=== PATIENT | female | born 1995 | race Caucasian/White ===

== ENCOUNTER 2024-02-16 13:31 | Inpatient (IN) | payer MEDICAID ==
[~2024-02-16] VITALS: Ht 175.3 cm; Wt 95.3 kg
[2024-02-16 14:31] VITALS: O2SAT 98
[2024-02-16] MEDS: ALBUTEROL SULFATE 2.5 MG/3 ML NEBU NEB ONE ×2 (14:31→17:10)
[2024-02-16] MEDS: IPRATROPIUM BROMIDE 0.5 MG/2.5 ML NEBU NEB ONE ×2 (14:31→17:10)
[2024-02-16] MEDS ORDERED: ALBUTEROL SULFATE 2.5 MG/3 ML NEBU ONE ×2 (14:33→17:03)
[2024-02-16] MEDS ORDERED: IPRATROPIUM BROMIDE 0.5 MG/2.5 ML NEBU ONE ×2 (14:33→17:03)
[2024-02-16] MEDS ORDERED: methylPREDNISolone SOD SUCC 125 MG/2 ML VIAL ONE (14:39)
[2024-02-16 14:42] LABS: BASOPHILS % (AUTO) 0.5 % (0.0-2.0); EOSINOPHILS # (AUTO) 0.1 K/uL (0.0-0.7); EOSINOPHILS % (AUTO) 2.2 % (0.0-7.0); HEMATOCRIT 42.6 % (31.2-41.9); HEMOGLOBIN 14.4 g/dL (10.9-14.3); LYMPHOCYTES # (AUTO) 1.6 K/uL (0.8-4.8); LYMPHOCYTES % (AUTO) 34.3 % (20.5-51.5); MEAN CORPUSCULAR HEMOGLOBIN 29.6 uug (24.7-32.8); MEAN CORPUSCULAR HGB CONC 34 g/dL (32.3-35.6); MEAN CORPUSCULAR VOLUME 87.7 fL (75.5-95.3); MONOCYTES # (AUTO) 0.6 K/uL (0.1-1.30); MONOCYTES % (AUTO) 13.2 % (0.0-11.0); NEUTROPHILS # (AUTO) 2.3 K/uL (1.8-8.9); NEUTROPHILS % (AUTO) 49.8 % (38.5-71.5); PLATELET COUNT (AUTO) 266 K/uL (179-408); RED BLOOD CELL COUNT(AUTO) 4.86 MIL/uL (3.63-4.92); RED CELL DISTRIBUTION WIDTH 14.1 % (12.3-17.7); WHITE BLOOD COUNT (AUTO) 4.7 K/uL (3.8-11.8)
[2024-02-16] MEDS: methylPREDNISolone SOD SUCC 125 MG/2 ML VIAL IV ONE (14:42)
[2024-02-16 14:44] LABS: DIFFERENTIAL COMMENT 1
[2024-02-16 14:48] LABS: CALCIUM 8.6 mg/dL (8.5-10.1); CARBON DIOXIDE 28 mmol/L (21-32); CHLORIDE 106 mmol/L (98-107); CREATININE 0.8 mg/dL (0.6-1.3); GLUCOSE 94 mg/dL (74-106); POTASSIUM 3.8 mmol/L (3.5-5.1); SODIUM SERUM 146 mmol/L (136-145); UREA NITROGEN, BLOOD 11 mg/dL (7-18)
[2024-02-16 15:01] LABS: ALANINE AMINOTRANSFERASE 86 U/L (14-59); ALBUMIN 3.7 g/dL (3.4-5.0); ALKALINE PHOSPHATASE 84 U/L (50-136); ASPARTATE AMINOTRANSFERASE 34 U/L (15-37); BILIRUBIN,DIRECT 0.1 mg/dL (0.0-0.2); BILIRUBIN,TOTAL 0.3 mg/dL (0.2-1.0); TOTAL PROTEIN, SERUM 8.1 g/dL (6.4-8.2)
[2024-02-16 15:02] LABS: NT-PRO BNP < 5 pg/mL (0-125)
[2024-02-16 15:45] VITALS: O2SAT 100
[2024-02-16 17:10] VITALS: O2SAT 98
[2024-02-16 18:15] VITALS: O2SAT 100
[2024-02-16] MEDS ORDERED: ALBUTEROL SULFATE 1.25 MG/3 ML NEBU NEB PRN ×2 (19:30→19:57)
[2024-02-16] MEDS ORDERED: ONDANSETRON 4 MG/2 ML VIAL IV PRN (19:30)
[2024-02-16] MEDS ORDERED: ACETAMINOPHEN 325 MG TABLET PO PRN (19:30)
[2024-02-16] MEDS ORDERED: REMEDY ESSENTIAL ZINC PASTE 113 GM TP PRN (19:30)
[2024-02-16] MEDS ORDERED: MAGNESIUM HYDROXIDE 30 ML LIQUID UDC PO PRN (19:30)
[2024-02-16] MEDS ORDERED: IPRATROPIUM BROMIDE 0.5 MG/2.5 ML NEBU NEB PRN (19:30)
[2024-02-16 22:00] VITALS: BP 128/72; TEMP 98.2; O2SAT 98
[2024-02-16] MEDS ORDERED: methylPREDNISolone SOD SUCC 40 MG/ML VIAL IV SCH (22:00)
[2024-02-16] MEDS ORDERED: LEVALBUTEROL HCL NEB 0.63 MG/3 ML NEBU NEB PRN (22:15)
[2024-02-16] MEDS ORDERED: GUAIFENESIN/DEXTROMETHORPHAN 5 ML UDC PO PRN (22:15)
[2024-02-16] MEDS: BENZONATATE 100 MG CAPSULE PO PRN (22:43)
[2024-02-17 00:30] VITALS: BP 115/70; TEMP 97.9; O2SAT 98
[2024-02-17 04:43] VITALS: BP 112/67; TEMP 98.2; O2SAT 98
[2024-02-17] MEDS ORDERED: BENZONATATE 100 MG CAPSULE PO PRN (04:57)
[2024-02-17] MEDS ORDERED: IPRATROPIUM BROMIDE 0.5 MG/2.5 ML NEBU NEB PRN (04:57)
[2024-02-17] MEDS ORDERED: LEVALBUTEROL HCL NEB 0.63 MG/3 ML NEBU NEB PRN (04:58)
[2024-02-17] MEDS: methylPREDNISolone SOD SUCC 40 MG/ML VIAL IV SCH (05:14)
[2024-02-17 07:30] VITALS: BP 123/71; TEMP 98.1; O2SAT 98
[2024-02-17 07:59] LABS: BASOPHILS % (AUTO) 0.1 % (0.0-2.0); HEMATOCRIT 37.1 % (31.2-41.9); HEMOGLOBIN 12.8 g/dL (10.9-14.3); LYMPHOCYTES # (AUTO) 0.9 K/uL (0.8-4.8); LYMPHOCYTES % (AUTO) 14.1 % (20.5-51.5); MEAN CORPUSCULAR HEMOGLOBIN 29.9 uug (24.7-32.8); MEAN CORPUSCULAR HGB CONC 35 g/dL (32.3-35.6); MEAN CORPUSCULAR VOLUME 86.5 fL (75.5-95.3); MONOCYTES # (AUTO) 0.6 K/uL (0.1-1.30); MONOCYTES % (AUTO) 8.7 % (0.0-11.0); NEUTROPHILS # (AUTO) 5.1 K/uL (1.8-8.9); NEUTROPHILS % (AUTO) 77.1 % (38.5-71.5); PLATELET COUNT (AUTO) 288 K/uL (179-408); RED BLOOD CELL COUNT(AUTO) 4.28 MIL/uL (3.63-4.92); RED CELL DISTRIBUTION WIDTH 13.8 % (12.3-17.7); WHITE BLOOD COUNT (AUTO) 6.6 K/uL (3.8-11.8)
[2024-02-17 08:07] LABS: CALCIUM 8.5 mg/dL (8.5-10.1); CREATININE 0.7 mg/dL (0.6-1.3); PHOSPHOROUS 3.1 mg/dL (2.5-4.9)
[2024-02-17 08:09] LABS: DIFFERENTIAL COMMENT 1
[2024-02-17 08:48] LABS: THYROID STIMULATING HORMONE 0.638 mIU/mL (0.358-3.740)
[2024-02-17] MEDS: FLUTICASONE PROP NASAL SPRAY 16 GM BOTTLE NS SCH (09:02)
[2024-02-17] MEDS ORDERED: METH4TAB3 PO (10:28)
[2024-02-17] MEDS ORDERED: ALBU18HF2 INH (10:28)
[2024-02-17] MEDS ORDERED: BENZ-13 PO (10:28)
[2024-02-17] MEDS ORDERED: [UNRECOGNIZED DRUG - CODE] PO (10:28)
[2024-02-17 11:39] VITALS: BP 114/58; TEMP 97.8; O2SAT 96
[2024-02-17 15:47] VITALS: BP 107/70; TEMP 98; O2SAT 97
== END 2024-02-17 14:45 | disposition home or self-care (01) | DRG 141 ==
LOC: ER 13:31 → TELE3 21:24 → MEDSURG3 02-17 10:51
DX: J45.902 Unspecified asthma with status asthmaticus (principal); E87.0 Hyperosmolality and hypernatremia; E66.9 Obesity, unspecified; Z68.31 Body mass index [BMI] 31.0-31.9, adult
CPT/HCPCS: 36415; 71045; 83735; 84100; 84443; 84484; 85025; 94760; A4606; A4663; G0378; J2919; J3535; J3590